=== PATIENT | male | born 1980 | race Two or more races ===

== ENCOUNTER 2024-04-02 09:57 | Emergency (ER) | payer BC, OTHER ==
[2024-04-02 10:25] VITALS: BP 128/83; PULSE 75; RESP 18; TEMP 98.7; BMI 25.8
[2024-04-02 11:00] LABS: BASO % 0.7 % (0-2.0); EOS % 1.7 % (0-4.5); HEMATOCRIT 43.5 % (35.4-49); HEMOGLOBIN 15.5 GM/dL (11.7-16.9); LYMPH % 37.7 % (8-40); MCH 32.7 pg (25.7-33.7); MCHC 35.6 g/dl (32.0-35.9); MEAN CELL VOLUME 91.9 fl (80-96); MEAN PLT VOLUME 7.8 fl (7.5-11.1); MONO % 6.6 % (3.8-10.2); NEUT % 53.3 % (42.8-82.8); PLATELET COUNT 196 10^3/uL (134-434); RBC 4.73 M/mm3 (4.00-5.60); RDW 12.3 % (11.9-15.9); WHITE BLOOD COUNT 4.1 K/mm3 (4.0-10.0)
[2024-04-02] MEDS ORDERED: MECLIZINE HCL 25 MG TABLET (FP) ONE (11:13)
[2024-04-02] MEDS: MECLIZINE HCL 25 MG TABLET (FP) PO ONE (11:19)
[2024-04-02] MEDS: SODIUM CHLORIDE 1,000 ML IV STA (11:19)
[2024-04-02 11:22] LABS: POTASSIUM 4.2 mmol/L (3.5-5.1)
[2024-04-02 11:25] LABS: ALBUMIN 4.3 g/dl (3.4-5.0); BLOOD UREA NITROGEN 10.4 mg/dL (7-18); CALCIUM 9.2 mg/dL (8.5-10.1); MAGNESIUM 2.4 mg/dL (1.8-2.4)
[2024-04-02 11:30] LABS: BILIRUBIN,TOTAL 0.6 mg/dL (0.2-1); TOT PROT 7.3 g/dl (6.4-8.2)
== END 2024-04-02 13:07 | disposition home or self-care (01) ==
LOC: JER 09:57
PROC: 3E0337Z Introduction of Electrolytic and Water Balance Substance into Peripheral Vein, Percutaneous Approach (ICD-10-PCS; principal; 2024-04-02)
DX: R42 Dizziness and giddiness (principal); R51.9 Headache, unspecified; R11.0 Nausea; Z20.822 Contact with and (suspected) exposure to COVID-19
CPT/HCPCS: 0241U-QW; 36415; 70450-TC; 71046-TC-FY; 80053; 83735; 84443; 84484; 85025; 93005; 93010; 99285-25